=== PATIENT | male | born 1980 | race Caucasian/White ===

== ENCOUNTER 2025-01-16 22:53 | Emergency (ER) | payer SELFPAY ==
[2025-01-16 22:58] VITALS: BP 174/110
[2025-01-16 23:19] VITALS: BMI 38.4
[2025-01-16 23:23] VITALS: BP 163/102
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
[2025-01-17] MEDS: MOTRIN 800 MG PO (00:30)
[2025-01-17] MEDS: FLEXERIL 10 MG PO (00:31)
== END 2025-01-17 00:38 | disposition home or self-care (01) ==
LOC: EMR 22:53
PROVIDERS: EMERGENCY PHYSICIAN Emergency Medicine; FAMILY PHYSICIAN Family Medicine
DX: S46.912A Strain of unspecified muscle, fascia and tendon at shoulder and upper arm level, left arm, initial encounter (principal); V43.52XA Car driver injured in collision with other type car in traffic accident, initial encounter; Y92.410 Unspecified street and highway as the place of occurrence of the external cause; I10 Essential (primary) hypertension; E66.9 Obesity, unspecified
CPT/HCPCS: 99282